=== PATIENT | female | born 1995 | race Caucasian/White ===

== ENCOUNTER 2017-03-06 23:23 | Emergency (ER) | payer OTHER ==
[~2017-03-06] VITALS: Ht 157.5 cm; Wt 90.7 kg
[~2017-03-06 23:23] MED LIST: METO10TA81 PO; NITR100C62 PO; PNV1TABL25 PO; PROAIR HFA8.5 GM INH; PROM25TA10 PO
[2017-03-06 23:35] VITALS: BP 119/71
[2017-03-07 00:27] LABS: BARBITURATES NEG (NEG); BENZODIAZEPINES NEG (NEG); CANNABINOIDS POS (NEG); COCAINE NEG (NEG); METHADONE NEG (NEG); OPIATES NEG (NEG); PHENCYCLIDINE NEG (NEG)
[2017-03-07 02:14] LABS: CALCIUM 8.6 mg/dL (8.5-10.1); CREATININE 0.8 mg/dL (0.6-1.0); GFR 91.4; POTASSIUM 3.4 mmol/L (3.5-5.1)
[2017-03-07 02:15] LABS: NEG OBC SER NEG; POS OBC SER POS
[2017-03-07 02:21] LABS: ALBUMIN 3.9 g/dL (3.4-5.0); ALBUMIN/GLOBULIN RATIO 1.2 (1.0-1.7); TOTAL BILIRUBIN 0.5 mg/dL (0.2-1.0); TOTAL PROTEIN 7.2 g/dL (6.4-8.2)
[2017-03-07 03:20] LABS: BASO % 0 % (0-3); EOS % 1 % (0-3); HEMATOCRIT 39.5 % (36.0-47.0); HEMOGLOBIN 13.4 g/dL (12.0-15.5); LYMPH # 4.4 x10^3/uL (1.0-4.8); LYMPH % 34 % (24-48); MEAN CORPUSCULAR HEMOGLOBIN 27 pg (25-35); MEAN CORPUSCULAR HGB CONC 34 g/dL (31-37); MEAN CORPUSCULAR VOLUME 81 fL (79-100); MONO % 8 % (0-9); NEUT % 57 % (31-73); PLATELET COUNT 399 x10^3/uL (140-400); RED CELL DISTRIBUTION WIDTH 14.1 % (11.5-14.5); WHITE BLOOD COUNT 12.8 x10^3/uL (4.0-11.0)
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
== END 2017-03-07 04:58 | disposition home or self-care (01) ==
LOC: ER 23:23
DX: S60.812A Abrasion of left wrist, initial encounter (principal); T45.0X2A Poisoning by antiallergic and antiemetic drugs, intentional self-harm, initial encounter; J45.909 Unspecified asthma, uncomplicated; F12.10 Cannabis abuse, uncomplicated; G47.00 Insomnia, unspecified; F32.9 Major depressive disorder, single episode, unspecified; F41.9 Anxiety disorder, unspecified; X78.8XXA Intentional self-harm by other sharp object, initial encounter; Y93.89 Activity, other specified; Y92.89 Other specified places as the place of occurrence of the external cause; Y99.8 Other external cause status
CPT/HCPCS: 36415; 80053; 80305; 80320; 80329; 81025; 84703; 85027; 99284; G0480; G0481; 99285-25

== ENCOUNTER 2019-03-05 07:56 | Emergency (ER) | payer SELFPAY ==
[~2019-03-05] VITALS: Ht 157.5 cm; Wt 95.3 kg
[~2019-03-05 07:56] MED LIST changes: +ALBU2.5V8 INH; -PROAIR HFA8.5 GM INH
[2019-03-05 08:47] VITALS: BP 141/97
--- NOTE | 2019-03-05 09:08 | PHYS DOC ---
Past Medical History Past Medical History: No Pertinent History Additional Past Medical Histor: insomnia Past Surgical History: No Surgical History Alcohol Use: Occasionally Drug Use: None Adult General Chief Complaint Chief Complaint: ANKLE PROBLEM HPI HPI Patient is a 23 year old female who presents with a throbbing 7 out of 10 intermittent right ankle pain that began last night after she jumped off a porch accidentally. Patient states the pain is worse on weight bearing. Denies anything specifically relieving the pain Review of Systems Review of Systems Constitutional: Denies fever or chills [] Musculoskeletal: Reports right ankle pain Integument: Denies rash or skin lesions [] Neurologic: Denies headache, focal weakness or sensory changes [] All other systems were reviewed and found to be within normal limits, except as documented in this note. Allergies Allergies Allergies Coded Allergies Type Severity Reaction Last Updated Verified No Known Drug Allergies 01/29/15 No Physical Exam Physical Exam Constitutional: Well developed, well nourished, no acute distress, non-toxic appearance. [] Skin: Warm, dry, no erythema, no rash. [] Back: No tenderness, no CVA tenderness. [] Extremities: Right ankle with no obvious deformity, moderate soft tissue swelling noted on the right lateral ankle. Tenderness on palpation of the right lateral ankle. Full range of motion to the right ankle and toes. +2 right pedal pulse. Cap refill less than 2 seconds the right toes. Sensation intact. Neurologic: Alert and oriented X 3, normal motor function, normal sensory function, no focal deficits noted. [] Psychologic: Affect normal, judgement normal, mood normal. [] Current Patient Data Vital Signs Vital Signs Date Time Temp Pulse Resp B/P (MAP) Pulse Ox O2 Delivery O2 Flow Rate FiO2 03/05/19 08:47 98.9 93 12 141/97 (112) 99 Room Air 98.9 EKG EKG [] Radiology/Procedures Radiology/Procedures []PROCEDURE: ANKLE RIGHT 3V ANKLE RIGHT 3V 03/05/2019 8:52 AM INDICATION: Twisted ankle COMPARISON: None available. TECHNIQUE: 3 views of the right ankle are provided. FINDINGS: There is no acute fracture or dislocation. Bone mineralization is within normal limits. Joint spaces are maintained. Lateral soft tissue swelling of the ankle. There is no soft tissue gas or osseous erosion. IMPRESSION: Significant lateral soft tissue ankle swelling without acute fracture or dislocation. Electronically signed by: Taniya Campo MD (03/05/2019 9:09 AM) [id number] DICTATED and SIGNED BY: TANIYA CAMPO MD DATE: 03/05/19908 Course & Med Decision Making Course & Med Decision Making Pertinent Labs and Imaging studies reviewed. (See chart for details) This is a 23-year-old female patient presented to the ED today with right ankle pain that began after she jumped off a porch yesterday. Right ankle x-rays interpreted by radiologist were noted for soft tissue swelling that does not acute findings. Antolin bandage and air cast applied to the right ankle. Ice elevation encouraged. Provided orthopedic doctor for follow-up. OTC pain relievers recommended this patient anti-inflammatories. Dragon Disclaimer Dragon Disclaimer This electronic medical record was generated, in whole or in part, using a voice recognition dictation system. Departure Departure Impression: Primary Impression: Right ankle sprain Additional Impression: Fall from height of less than 3 feet Disposition: 01 HOME, SELF-CARE Condition: STABLE Referrals: NO PCP (PCP) MONIQUE MARR II, MD follow up in one week Patient Instructions: Ankle Sprain, Acute, with Phase I Rehab[facility]Sports[facility] Additional Instructions: You were seen for right ankle sprain. Wear the Antolin bandage and air cast provided as tolerated. Try to ice and elevate the extremity. Take over the counter pain relievers as needed. Problem Qualifiers Primary Impression: Right ankle sprain Encounter type: initial encounter Involved ligament of ankle: unspecified ligament Qualified Codes: S93.401A - Sprain of unspecified ligament of right ankle, initial encounter JP [employer]CHER [employer] Mar 05, 2019 09:08
--- NOTE | 2019-03-05 09:12 | RAD ---
ANKLE RIGHT 3V 03/05/2019 8:52 AM INDICATION: Twisted ankle COMPARISON: None available. TECHNIQUE: 3 views of the right ankle are provided. FINDINGS: There is no acute fracture or dislocation. Bone mineralization is within normal limits. Joint spaces are maintained. Lateral soft tissue swelling of the ankle. There is no soft tissue gas or osseous erosion. IMPRESSION: Significant lateral soft tissue ankle swelling without acute fracture or dislocation. Electronically signed by: Jessica Campo MD (03/05/2019 9:09 AM) [id number]
== END 2019-03-05 10:44 | disposition home or self-care (01) ==
LOC: ER 07:56
DX: S93.491A Sprain of other ligament of right ankle, initial encounter (principal); W17.89XA Other fall from one level to another, initial encounter; Y93.39 Activity, other involving climbing, rappelling and jumping off; Y92.89 Other specified places as the place of occurrence of the external cause; Y99.8 Other external cause status
CPT/HCPCS: 29515; 73610; 99284

== ENCOUNTER 2019-08-11 22:57 | Emergency (ER) | payer MEDICAID ==
[~2019-08-11] VITALS: Ht 157.5 cm; Wt 99.8 kg
[2019-08-12] LABS: BASO # 0.1 x10^3/uL (0.0-0.2); BASO % 1 % (0-3); EOS # 0.1 x10^3/uL (0.0-0.7); EOS % 1 % (0-3); HEMATOCRIT 38.8 % (36.0-47.0); LYMPH # 2.1 x10^3/uL (1.0-4.8); LYMPH % 27 % (24-48); MEAN CORPUSCULAR HEMOGLOBIN 26 pg (25-35); MEAN CORPUSCULAR HGB CONC 34 g/dL (31-37); MEAN CORPUSCULAR VOLUME 78 fL (79-100); MONO # 0.7 x10^3/uL (0.0-1.1); MONO % 9 % (0-9); NEUT # 4.8 x10^3/uL (1.8-7.7); NEUT % 63 % (31-73); PLATELET COUNT 411 x10^3/uL (140-400); RED BLOOD COUNT 4.96 x10^6/uL (3.50-5.40); RED CELL DISTRIBUTION WIDTH 15.7 % (11.5-14.5); WHITE BLOOD COUNT 7.7 x10^3/uL (4.0-11.0)
[2019-08-12 00:03] LABS: BILIRUBIN,URINE NEGATIVE (NEG); CLARITY,URINE CLEAR; COLOR,URINE YELLOW; NITRITE,URINE NEGATIVE (NEG); PROTEIN,URINE NEGATIVE (NEG-TRACE); UROBILINOGEN,URINE 0.2 mg/dL (0.2 mg/dL)
--- NOTE | 2019-08-12 00:08 | PHYS DOC ---
Past Medical History Past Medical History: No Pertinent History Additional Past Medical Histor: insomnia Past Surgical History: No Surgical History Alcohol Use: Occasionally Drug Use: None Adult General Chief Complaint Chief Complaint: VAGINAL BLEEDING HPI HPI 24-year-old female presents to the emergency department with complaints of vaginal bleeding. Patient states last menstrual period June 03, 2019. She states she did have some early vaginal bleeding after diagnosis of she received ultrasound at [facility] however no evidence of intrauterine at that time. Patient presents today with abdominal cramping as well as vaginal bleeding. Patient denies any fever, nausea, vomiting, chest pain or shortness of breath Review of Systems Review of Systems Constitutional: Denies fever or chills [] Respiratory: Denies cough or shortness of breath [] Cardiovascular: No additional information not addressed in HPI [] GI: abdominal cramping, no nausea, vomiting, bloody stools or diarrhea [] : Denies dysuria or hematuria [] Musculoskeletal: Denies back pain or joint pain [] Neurologic: Denies headache, focal weakness or sensory changes [] All other systems were reviewed and found to be within normal limits, except as documented in this note. Allergies Allergies Allergies Coded Allergies Type Severity Reaction Last Updated Verified No Known Drug Allergies 01/29/15 No Physical Exam Physical Exam Constitutional: Well developed, well nourished, no acute distress, non-toxic appearance. [] HENT: Normocephalic, atraumatic, bilateral external ears normal, oropharynx moist, no oral exudates, nose normal. [] Eyes: PERRLA, EOMI, conjunctiva normal, no discharge. [] Cardiovascular:Heart rate regular rhythm, no murmur [] Lungs & Thorax: Bilateral breath sounds clear to auscultation [] Abdomen: Bowel sounds normal, soft, no tenderness, no masses, no pulsatile masses. [] Skin: Warm, dry, no erythema, no rash. [] Back: No tenderness, no CVA tenderness. [] Extremities: No tenderness, no edema. [] Neurologic: Alert and oriented X 3, no focal deficits noted. [] Psychologic: Affect normal, judgement normal, mood normal. [] Vaginal exam reveals evidence of no acute bleeding present, she does have some discharge present Current Patient Data Vital Signs Vital Signs Date Time Temp Pulse Resp B/P (MAP) Pulse Ox O2 Delivery O2 Flow Rate FiO2 08/11/19 23:30 98.0 86 18 142/86 (104) 99 Room Air 98.0 Lab Values Laboratory Tests Test 08/11/19 23:30 08/11/19 23:47 08/11/19 23:52 Urine Collection Type Unknown Urine Color Yellow Urine Clarity Clear Urine pH 5.0 Urine Specific Jewett 1.020 Urine Protein Negative mg/dL (NEG-TRACE) Urine Glucose (UA) Negative mg/dL (NEG) Urine Ketones (Stick) 40 mg/dL (NEG) Urine Blood Negative (NEG) Urine Nitrite Negative (NEG) Urine Bilirubin Negative (NEG) Urine Urobilinogen Dipstick 0.2 mg/dL (0.2 mg/dL) Urine Leukocyte Esterase Moderate (NEG) Urine RBC 1-2 /HPF (0-2) Urine WBC 11-20 /HPF (0-4) Urine Squamous Epithelial Cells Mod /LPF Urine Bacteria Few /HPF (0-FEW) Urine Mucus Marked /LPF White Blood Count 7.7 x10^3/uL (4.0-11.0) Red Blood Count 4.96 x10^6/uL (3.50-5.40) Hemoglobin 13.0 g/dL (12.0-15.5) Hematocrit 38.8 % (36.0-47.0) Mean Corpuscular Volume 78 fL (79-100) L Mean Corpuscular Hemoglobin 26 pg (25-35) Mean Corpuscular Hemoglobin Concent 34 g/dL (31-37) Red Cell Distribution Width 15.7 % (11.5-14.5) H Platelet Count 411 x10^3/uL (140-400) H Neutrophils (%) (Auto) 63 % (31-73) Lymphocytes (%) (Auto) 27 % (24-48) Monocytes (%) (Auto) 9 % (0-9) Eosinophils (%) (Auto) 1 % (0-3) Basophils (%) (Auto) 1 % (0-3) Neutrophils # (Auto) 4.8 x10^3/uL (1.8-7.7) Lymphocytes # (Auto) 2.1 x10^3/uL (1.0-4.8) Monocytes # (Auto) 0.7 x10^3/uL (0.0-1.1) Eosinophils # (Auto) 0.1 x10^3/uL (0.0-0.7) Basophils # (Auto) 0.1 x10^3/uL (0.0-0.2) Maternal Serum HCG Beta Subunit 81782 mIU/mL (0-5) H Sodium Level 137 mmol/L (136-145) Potassium Level 3.6 mmol/L (3.5-5.1) Chloride Level 103 mmol/L (98-107) Carbon Dioxide Level 24 mmol/L (21-32) Anion Gap 10 (6-14) Blood Urea Nitrogen 9 mg/dL (7-20) Creatinine 0.7 mg/dL (0.6-1.0) Estimated GFR (Cockcroft-Gault) 103.7 BUN/Creatinine Ratio 13 (6-20) Glucose Level 98 mg/dL (70-99) Calcium Level 8.9 mg/dL (8.5-10.1) Total Bilirubin 0.3 mg/dL (0.2-1.0) Aspartate Amino Transferase (AST) 13 U/L (15-37) L Alanine Aminotransferase (ALT) 17 U/L (14-59) Alkaline Phosphatase 65 U/L (46-116) Total Protein 7.7 g/dL (6.4-8.2) Albumin 3.7 g/dL (3.4-5.0) Albumin/Globulin Ratio 0.9 (1.0-1.7) L POC Urine HCG, Qualitative Hcg positive (Negative) Laboratory Tests 08/11/19 23:47 Laboratory Tests 08/11/19 23:47 Microbiology 08/12/19 Wet Prep - Final, Complete EKG EKG [] Radiology/Procedures Radiology/Procedures [facility] [address] [place], [place] [id number] IMAGING REPORT Signed PATIENT: MARTIN NEWMAN ACCOUNT: [id number] : 1995 LOCATION: ER AGE: 24 SEX: F EXAM STATUS: REG ER ORD. PHYSICIAN: MARYBETH PATTON MD REASON: vaginal bleeding in < 14weeks, unknown IUP PROCEDURE: OB TRANSVAG Examination: Obstetric ultrasound. Mr. HISTORY: History of vaginal bleeding COMPARISON: None available. FINDINGS: The uterus measures 8.8 x 5.9 x 4.5 cm. The right ovary measures 3.8 x 1.9 x 2.0 cm. The left ovary measures 3.1 x 1.9 x 1.5 cm. Corpus luteal cyst measuring 1.6 cm in the right ovary. Intrauterine gestational sac identified. heart rate 110 bpm. The crown-rump length measures 0.47 cm corresponding to 6 weeks and 1 day Gestational age of 6 weeks and 1 day with estimated date of delivery by ultrasound 04/05/2020. 3 cm heterogeneous echogenicity identified anterior inferior to gestational sac. Small amount of fluid identified in the cervix. Clinical age of 6 weeks and 1 day. Given LMP is 06/13/2019. IMPRESSION: 1. Single living intrauterine with heart rate of 110 bpm. 2. 3 cm heterogeneous echogenicity identified anterior and inferior to the gestational sac could be subchorionic bleed. Electronically signed by: Emre Garrett MD (08/12/2019 1:39 AM) [facility] DICTATED and SIGNED BY: EMRE GARRTET MD DATE: 08/12/19 0139 [] Course & Med Decision Making Course & Med Decision Making Pertinent Labs and Imaging studies reviewed. (See chart for details) []24-year-old female presents to the emergency department with complaints of vaginal bleeding. Patient states last menstrual period June 03, 2019. She states she did have some early vaginal bleeding after diagnosis of she received ultrasound at [facility] however no evidence of intrauterine at that time. Patient presents today with abdominal cramping as well as vaginal bleeding. Patient denies any fever, nausea, vomiting, chest pain or shortness of breath Labs reviewed Evidence of UTI, BV on exam Abx provided upon discharge for flagyl 500mg BID, Keflex 500mg BID x 3 days Discussed return precautions Dragon Disclaimer Dragon Disclaimer This electronic medical record was generated, in whole or in part, using a voice recognition dictation system. Departure Departure Impression: Primary Impression: Asymptomatic bacteriuria during in first trimester Additional Impressions: Vaginal bleeding in Bacterial vaginosis in Disposition: HOME, SELF-CARE Condition: STABLE Referrals: NO PCP (PCP) Patient Instructions: Bacterial Vaginosis, [id number], Urinary Tract Infection, Vaginal Bleeding During , First Trimester Additional Instructions: Recommend follow up with PCP 3 - 5 days Return to the ER with worsening symptoms, intractable pain, fever, altered mental status Tylenol/Motrin as needed for pain Take antibiotics as directed Scripts Cephalexin (KEFLEX) 500 Mg Capsule 2 CAP PO Q12HR for 3 Days, #12 CAP Prov: MARYBETH PATTON MD 08/12/19 Metronidazole (FLAGYL) 500 Mg Tablet 1 TAB PO BID, #14 TAB Prov: MARYBETH PATTON MD 08/12/19 Problem Qualifiers MARYBETH PATTON MD Aug 12, 2019 00:08
[2019-08-12 00:10] LABS: CALCIUM 8.9 mg/dL (8.5-10.1); CREATININE 0.7 mg/dL (0.6-1.0); GFR 103.7; POTASSIUM 3.6 mmol/L (3.5-5.1)
[2019-08-12 00:11] LABS: BACTERIA,URINE FEW /HPF (0-FEW); SQUAMOUS EPITHELIAL CELL,UR MOD /LPF
[2019-08-12 00:16] LABS: ALBUMIN 3.7 g/dL (3.4-5.0); ALBUMIN/GLOBULIN RATIO 0.9 (1.0-1.7); TOTAL BILIRUBIN 0.3 mg/dL (0.2-1.0); TOTAL PROTEIN 7.7 g/dL (6.4-8.2)
[2019-08-12 00:35] VITALS: BP 122/40
[2019-08-12] MEDS ORDERED: METR500T PO (01:09)
[2019-08-12] MEDS ORDERED: CEPH-264 PO (01:09)
--- NOTE | 2019-08-12 01:42 | RAD ---
Examination: Obstetric ultrasound. Mr. HISTORY: History of vaginal bleeding COMPARISON: None available. FINDINGS: The uterus measures 8.8 x 5.9 x 4.5 cm. The right ovary measures 3.8 x 1.9 x 2.0 cm. The left ovary measures 3.1 x 1.9 x 1.5 cm. Corpus luteal cyst measuring 1.6 cm in the right ovary. Intrauterine gestational sac identified. heart rate 110 bpm. The crown-rump length measures 0.47 cm corresponding to 6 weeks and 1 day Gestational age of 6 weeks and 1 day with estimated date of delivery by ultrasound 04/05/2020. 3 cm heterogeneous echogenicity identified anterior inferior to gestational sac. Small amount of fluid identified in the cervix. Clinical age of 6 weeks and 1 day. Given LMP is 06/13/2019. IMPRESSION: 1. Single living intrauterine with heart rate of 110 bpm. 2. 3 cm heterogeneous echogenicity identified anterior and inferior to the gestational sac could be subchorionic bleed. Electronically signed by: Emre Garrett MD (08/12/2019 1:39 AM) [facility]
[2019-08-13 20:08] LABS: GC PROBE Negative (Negative)
== END 2019-08-12 02:08 | disposition home or self-care (01) ==
LOC: ER 22:57
DX: O46.91 Antepartum hemorrhage, unspecified, first trimester (principal); O23.591 Infection of other part of genital tract in pregnancy, first trimester; B96.89 Other specified bacterial agents as the cause of diseases classified elsewhere; R82.71 Bacteriuria; Z3A.01 Less than 8 weeks gestation of pregnancy
CPT/HCPCS: 36415; 76817; 80053; 81001; 81025; 84702; 85025; 86850; 86900; 86901; 87086; 87491; 87591; 99285; Q0111

== ENCOUNTER 2019-08-17 18:47 | Emergency (ER) | payer MEDICAID ==
[~2019-08-17] VITALS: Ht 157.5 cm; Wt 99.8 kg
[~2019-08-17 18:47] MED LIST changes: +CEPH-264 PO; +METR500T PO
[2019-08-17 19:00] VITALS: BP 124/79
[2019-08-17] MEDS ORDERED: IV NORMAL SALINE 1000ML BAG 1,000 ML IV SCH (19:22)
--- NOTE | 2019-08-17 19:28 | PHYS DOC ---
Past Medical History Past Medical History: Anxiety, Depression Additional Past Medical Histor: insomnia Past Surgical History: Other Additional Past Surgical Histo: WISDOM TEETH Alcohol Use: Occasionally Drug Use: None Adult General Chief Complaint Chief Complaint: VOMITING IN HPI HPI Patient is a 24-year-old female at 7 weeks gestational age who presents wi th complaint of nausea with vomiting that started this morning about 11:00. Patient states that since that time she is not able to keep anything down. She denies any abdominal pain. She does indicate that she's been moving her bowels and states that is just an soft stool. She denies any fever. She also denies any chest pain or shortness of breath. Patient states that she has had no vaginal discharge or bleeding.[] Review of Systems Review of Systems Constitutional: Denies fever or chills [] Respiratory: Denies cough or shortness of breath [] Cardiovascular: No additional information not addressed in HPI [] GI: Denies abdominal pain. Complains of nausea and vomiting without diarrhea [] Integument: Denies rash or skin lesions [] Neurologic: Denies headache, focal weakness or sensory changes [] All other systems were reviewed and found to be within normal limits, except as documented in this note. Current Medications Current Medications Current Medications Medications (Trade) Dose Ordered Sig/Dewey Start Time Stop Time Status Last Admin Dose Admin Ondansetron HCl (Zofran) 4 mg 1X ONCE 08/17/19 19:30 08/17/19 19:31 DC 08/17/19 19:30 4 MG Sodium Chloride 1,000 ml @ 1,000 mls/hr Q1H 08/17/19 19:22 08/17/19 20:21 DC 08/17/19 19:22 1,000 MLS/HR Allergies Allergies Allergies Coded Allergies Type Severity Reaction Last Updated Verified No Known Drug Allergies 01/29/15 No Physical Exam Physical Exam Constitutional: Well developed, well nourished, no acute distress, non-toxic appearance. [] HENT: Normocephalic, atraumatic, bilateral external ears normal, oropharynx moist, no oral exudates, nose normal. [] Eyes: PERRLA, EOMI, conjunctiva normal, no discharge. [] Neck: Normal range of motion, no tenderness, supple. [] Cardiovascular: Regular rate and rhythm[] Lungs & Thorax: Bilateral breath sounds clear to auscultation [] Abdomen: Bowel sounds normal, soft, no tenderness. [] Skin: Warm, dry, no erythema, no rash. [] Extremities: No tenderness, no cyanosis, no clubbing, ROM intact, no edema. [] Neurologic: Alert and oriented X 3, no focal deficits noted. [] Current Patient Data Vital Signs Vital Signs Date Time Temp Pulse Resp B/P (MAP) Pulse Ox O2 Delivery O2 Flow Rate FiO2 08/17/19 19:00 97.3 80 18 124/79 (94) 100 Room Air 97.3 Lab Values Laboratory Tests Test 08/17/19 19:10 08/17/19 19:24 White Blood Count 8.8 x10^3/uL (4.0-11.0) Red Blood Count 5.15 x10^6/uL (3.50-5.40) Hemoglobin 13.6 g/dL (12.0-15.5) Hematocrit 41.1 % (36.0-47.0) Mean Corpuscular Volume 80 fL (79-100) Mean Corpuscular Hemoglobin 26 pg (25-35) Mean Corpuscular Hemoglobin Concent 33 g/dL (31-37) Red Cell Distribution Width 16.1 % (11.5-14.5) H Platelet Count 418 x10^3/uL (140-400) H Neutrophils (%) (Auto) 66 % (31-73) Lymphocytes (%) (Auto) 25 % (24-48) Monocytes (%) (Auto) 8 % (0-9) Eosinophils (%) (Auto) 1 % (0-3) Basophils (%) (Auto) 1 % (0-3) Neutrophils # (Auto) 5.7 x10^3/uL (1.8-7.7) Lymphocytes # (Auto) 2.2 x10^3/uL (1.0-4.8) Monocytes # (Auto) 0.7 x10^3/uL (0.0-1.1) Eosinophils # (Auto) 0.1 x10^3/uL (0.0-0.7) Basophils # (Auto) 0.1 x10^3/uL (0.0-0.2) Maternal Serum HCG Beta Subunit 33959 mIU/mL (0-5) H Sodium Level 137 mmol/L (136-145) Potassium Level 3.8 mmol/L (3.5-5.1) Chloride Level 104 mmol/L (98-107) Carbon Dioxide Level 21 mmol/L (21-32) Anion Gap 12 (6-14) Blood Urea Nitrogen 8 mg/dL (7-20) Creatinine 0.7 mg/dL (0.6-1.0) Estimated GFR (Cockcroft-Gault) 103.7 BUN/Creatinine Ratio 11 (6-20) Glucose Level 102 mg/dL (70-99) H Calcium Level 9.0 mg/dL (8.5-10.1) Total Bilirubin 0.3 mg/dL (0.2-1.0) Aspartate Amino Transferase (AST) 16 U/L (15-37) Alanine Aminotransferase (ALT) 12 U/L (14-59) L Alkaline Phosphatase 59 U/L (46-116) Total Protein 7.6 g/dL (6.4-8.2) Albumin 3.6 g/dL (3.4-5.0) Albumin/Globulin Ratio 0.9 (1.0-1.7) L Lipase 76 U/L (73-393) POC Urine HCG, Qualitative Hcg positive (Negative) Laboratory Tests 08/17/19 19:10 Laboratory Tests 08/17/19 19:10 EKG EKG [] Radiology/Procedures Radiology/Procedures [] Course & Med Decision Making Course & Med Decision Making Pertinent Labs and Imaging studies reviewed. (See chart for details) reevaluated at 8:20 PM and patient states that she is feeling much better at this time. 1 L of fluids has infused and patient has had 4 mg of Zofran via IV. Dragon Disclaimer Dragon Disclaimer This electronic medical record was generated, in whole or in part, using a voice recognition dictation system. Departure Departure Impression: Primary Impression: Nausea and vomiting during Disposition: 01 HOME, SELF-CARE Condition: STABLE Referrals: DAMI JEFFERY MD (PCP) Patient Instructions: ABCs of , Nausea and Vomiting, Scripts Ondansetron (ONDANSETRON ODT) 4 Mg Tab.rapdis 1 TAB PO PRN Q6-8HRS PRN for NAUSEA, #15 TAB Prov: NERI ARMSTRONG Jr. DO 08/17/19 NERI ARMSTRONG Jr. DO Aug 17, 2019 19:28
[2019-08-17] MEDS ORDERED: ONDANSETRON PF 4 MG/2 ML VIAL. IV ONE (19:30)
[2019-08-17 19:31] LABS: BASO # 0.1 x10^3/uL (0.0-0.2); BASO % 1 % (0-3); EOS # 0.1 x10^3/uL (0.0-0.7); EOS % 1 % (0-3); HEMATOCRIT 41.1 % (36.0-47.0); HEMOGLOBIN 13.6 g/dL (12.0-15.5); LYMPH # 2.2 x10^3/uL (1.0-4.8); LYMPH % 25 % (24-48); MEAN CORPUSCULAR HEMOGLOBIN 26 pg (25-35); MEAN CORPUSCULAR HGB CONC 33 g/dL (31-37); MEAN CORPUSCULAR VOLUME 80 fL (79-100); MONO # 0.7 x10^3/uL (0.0-1.1); MONO % 8 % (0-9); NEUT # 5.7 x10^3/uL (1.8-7.7); NEUT % 66 % (31-73); PLATELET COUNT 418 x10^3/uL (140-400); RED BLOOD COUNT 5.15 x10^6/uL (3.50-5.40); RED CELL DISTRIBUTION WIDTH 16.1 % (11.5-14.5); WHITE BLOOD COUNT 8.8 x10^3/uL (4.0-11.0)
[2019-08-17 19:40] LABS: CREATININE 0.7 mg/dL (0.6-1.0); GFR 103.7; POTASSIUM 3.8 mmol/L (3.5-5.1)
[2019-08-17 19:46] LABS: ALBUMIN 3.6 g/dL (3.4-5.0); ALBUMIN/GLOBULIN RATIO 0.9 (1.0-1.7); TOTAL BILIRUBIN 0.3 mg/dL (0.2-1.0); TOTAL PROTEIN 7.6 g/dL (6.4-8.2)
[2019-08-17] MEDS ORDERED: ONDA4TAB12 PO (20:25)
== END 2019-08-17 20:25 | disposition home or self-care (01) ==
LOC: ER 18:47
DX: O21.9 Vomiting of pregnancy, unspecified (principal); O99.341 Other mental disorders complicating pregnancy, first trimester; F41.9 Anxiety disorder, unspecified; F32.9 Major depressive disorder, single episode, unspecified; Z3A.01 Less than 8 weeks gestation of pregnancy
CPT/HCPCS: 36415; 80053; 81025; 83690; 84702; 85025; 96361; 96374; 99284; J2405; J7030

== ENCOUNTER 2019-08-19 23:49 | Emergency (ER) | payer MEDICAID ==
[~2019-08-19] VITALS: Ht 157.5 cm; Wt 101.2 kg
[~2019-08-19 23:49] MED LIST changes: +ONDA4TAB12 PO
[2019-08-20 00:05] VITALS: BP 149/85
[2019-08-20] MEDS ORDERED: ONDANSETRON ODT 4 MG TAB.RAPDIS. PO STA (00:09)
--- NOTE | 2019-08-20 00:13 | PHYS DOC ---
Past Medical History Past Medical History: Anxiety, Depression Additional Past Medical Histor: insomnia (REINALDO CHAO APRN) Past Surgical History: Other Additional Past Surgical Histo: WISDOM TEETH (REINALDO CHAO APRN) Alcohol Use: Occasionally Drug Use: None (REINALDO CHAO APRN) Adult General Chief Complaint Chief Complaint: VOMITING IN HPI HPI Patient is a 24 year old female who presents with nausea. The patient states she 7 weeks . Patient states she was at work and tried a half of a pizza and got nauseous. She states she was seen here recently prescribed nausea medicine but then she lost the prescription. She states her work told her she had a come to the ER. (REINALDO CHAO APRN) Review of Systems Review of Systems Constitutional: Denies fever or chills [] Eyes: Denies change in visual acuity, redness, or eye pain [] HENT: Denies nasal congestion or sore throat [] Respiratory: Denies cough or shortness of breath [] Cardiovascular: No additional information not addressed in HPI [] GI: Reports nausea, Denies abdominal pain, vomiting, bloody stools or diarrhea [] : Denies dysuria or hematuria [] Musculoskeletal: Denies back pain or joint pain [] Integument: Denies rash or skin lesions [] Neurologic: Denies headache, focal weakness or sensory changes [] Endocrine: Denies polyuria or polydipsia [] Complete systems were reviewed and found to be within normal limits, except as documented in this note. (REINALDO CHAO APRN) Current Medications Current Medications Current Medications Medications (Trade) Dose Ordered Sig/Dewey Start Time Stop Time Status Last Admin Dose Admin Ondansetron HCl (Zofran Odt) 4 mg 1X STAT 08/20/19 00:09 08/20/19 00:11 DC 08/20/19 00:42 4 MG (REINALDO BARAJAS DO) Allergies Allergies Allergies Coded Allergies Type Severity Reaction Last Updated Verified No Known Drug Allergies 01/29/15 No (REINALDO BARAJAS DO) Physical Exam Physical Exam Constitutional: Well developed, well nourished, no acute distress, non-toxic appearance. [] HENT: Normocephalic, atraumatic, bilateral external ears normal, oropharynx moist, no oral exudates, nose normal. [] Eyes: PERRLA, EOMI, conjunctiva normal, no discharge. [] Abdomen: Bowel sounds normal, soft, no tenderness, no masses, no pulsatile masses. [] Skin: Warm, dry, no erythema, no rash. [] Neurologic: Alert and oriented X 3, normal motor function, normal sensory function, no focal deficits noted. [] Psychologic: Affect normal, judgement normal, mood normal. [] (REINALDO CHAO APRN) Current Patient Data Vital Signs Vital Signs Date Time Temp Pulse Resp B/P (MAP) Pulse Ox O2 Delivery O2 Flow Rate FiO2 08/20/19 00:05 98.1 82 17 149/85 (106) 100 Room Air 98.1 (REINALDO BARAJAS DO) EKG EKG [] (REINALDO CHAO APRN) Radiology/Procedures Radiology/Procedures [] (REINALDO CHAO APRN) Course & Med Decision Making Course & Med Decision Making Pertinent Labs and Imaging studies reviewed. (See chart for details) Will give the patient a new script for nausea medication. Will give Zofran. Will also give an ODT Zofran in the ER. (REINALDO CHAO APRN) Dragon Disclaimer Dragon Disclaimer This electronic medical record was generated, in whole or in part, using a voice recognition dictation system. (REINALDO CHAO APRN) Departure Departure Impression: Primary Impression: Nausea and vomiting during Disposition: 01 HOME, SELF-CARE Condition: STABLE Referrals: JEOVANY MAX Jr, MD (PCP) Patient Instructions: Diet - Hyperemesis Gravidarum, Hyperemesis Gravidarum Additional Instructions: Thank you for visiting [facility]. We appreciate you trusting us with your care. If any additional problems come up don't hesitate to return to visit us. Please follow up with your primary care provider so they can plan jeannette tional care if needed and know about the problem that you had. If symptoms worsen come back to the Emergency Department. Any concerning symptoms that start such as chest pain, shortness of air, weakness or numbness on one side of the body, running high fevers or any other concerning symptoms return to the ER. Please fill your medications at any pharmacy and follow the prescription instructions. Please follow up with her RN UROLOGY. Please return for unable to keep fluids down at home. Scripts Ondansetron (ONDANSETRON ODT) 4 Mg Tab.rapdis 1 TAB PO PRN Q6-8HRS PRN for NAUSEA, #16 TAB Prov: REINALDO BARAJAS DO 08/20/19 Attending Signature Attending Signature I have reviewed the PA/TITLE SPECIALIST's note and plan of care. I was available for consultation as needed during the patient's visit in the emergency department. I agree with the clinical impression, plan, and disposition. (REINALDO BARAJAS DO) REINALDO CHAO APRN Aug 20, 2019 00:13 REINALDO BARAJAS DO Aug 20, 2019 01:18
[2019-08-20] MEDS ORDERED: ONDA4TAB12 PO (00:44)
== END 2019-08-20 00:51 | disposition home or self-care (01) ==
LOC: ER 23:49
DX: O21.9 Vomiting of pregnancy, unspecified (principal); O99.341 Other mental disorders complicating pregnancy, first trimester; F32.9 Major depressive disorder, single episode, unspecified; F41.9 Anxiety disorder, unspecified; Z3A.01 Less than 8 weeks gestation of pregnancy
CPT/HCPCS: 99283; Q0162

== ENCOUNTER 2019-09-03 20:04 | Emergency (ER) | payer MEDICAID ==
[~2019-09-03] VITALS: Ht 167.6 cm; Wt 101.2 kg
[2019-09-03 20:29] VITALS: BP 131/74
[2019-09-03 21:41] LABS: BILIRUBIN,URINE NEGATIVE (NEG); CLARITY,URINE CLEAR; COLOR,URINE YELLOW; NITRITE,URINE NEGATIVE (NEG); PH,URINE 7.5; PROTEIN,URINE NEGATIVE (NEG-TRACE); UROBILINOGEN,URINE 0.2 mg/dL (0.2 mg/dL)
[2019-09-03 21:52] LABS: SQUAMOUS EPITHELIAL CELL,UR MOD /LPF
[2019-09-03 21:53] LABS: BACTERIA,URINE 0 /HPF (0-FEW); RBC,URINE OCC /HPF (0-2); WBC,URINE OCC /HPF (0-4)
--- NOTE | 2019-09-03 22:18 | PHYS DOC ---
Past Medical History Past Medical History: Anxiety, Depression Additional Past Medical Histor: insomnia Past Surgical History: Other Additional Past Surgical Histo: WISDOM TEETH Alcohol Use: None Drug Use: None Adult General Chief Complaint Chief Complaint: CONSTIPATION HPI HPI Patient is a 24 year old Female who presents with states she has not had a bowel movement since Friday. She states that she can actually feel the heart stool in her rectum is very uncomfortable but she cannot get it out. States that she went and saw her OB doctor, Dr Styles and they gave her a Fleet enema but she still cannot stool out. She denies vomiting any more than usual due to her p regnancy. She is drinking plenty of fluids and keeping them down. Review of Systems Review of Systems GI: constipation. Denies abdominal pain, nausea, vomiting, bloody stools or diarrhea [] All other systems were reviewed and found to be within normal limits, except as documented in this note. Allergies Allergies Allergies Coded Allergies Type Severity Reaction Last Updated Verified No Known Drug Allergies 01/29/15 No Physical Exam Physical Exam Constitutional: Well developed, well nourished, no acute distress, non-toxic appearance. [] HENT: Normocephalic, atraumatic, bilateral external ears normal, oropharynx moist, no oral exudates, nose normal. [] Eyes: PERRLA, EOMI, conjunctiva normal, no discharge. [] Neck: Normal range of motion, no tenderness, supple, no stridor. [] Cardiovascular:Heart rate regular rhythm, no murmur [] Lungs & Thorax: Bilateral breath sounds clear to auscultation [] Abdomen: Bowel sounds normal, soft, no tenderness, no masses, no pulsatile masses. [] Skin: Warm, dry, no erythema, no rash. [] Back: No tenderness, no CVA tenderness. [] Extremities: No tenderness, no cyanosis, no clubbing, ROM intact, no edema. [] Neurologic: Alert and oriented X 3, normal motor function, normal sensory function, no focal deficits noted. [] Psychologic: Affect normal, judgement normal, mood normal. Normal Physical Exam [] Current Patient Data Vital Signs Vital Signs Date Time Temp Pulse Resp B/P (MAP) Pulse Ox O2 Delivery O2 Flow Rate FiO2 09/03/19 20:29 97.6 83 18 131/74 (93) 99 Room Air 97.6 Lab Values Laboratory Tests Test 09/03/19 20:15 09/03/19 20:22 Urine Collection Type Unknown Urine Color Yellow Urine Clarity Clear Urine pH 7.5 Urine Specific [place] 1.020 Urine Protein Negative mg/dL (NEG-TRACE) Urine Glucose (UA) Negative mg/dL (NEG) Urine Ketones (Stick) Negative mg/dL (NEG) Urine Blood Negative (NEG) Urine Nitrite Negative (NEG) Urine Bilirubin Negative (NEG) Urine Urobilinogen Dipstick 0.2 mg/dL (0.2 mg/dL) Urine Leukocyte Esterase Negative (NEG) Urine RBC Occ /HPF (0-2) Urine WBC Occ /HPF (0-4) Urine Squamous Epithelial Cells Mod /LPF Urine Bacteria 0 /HPF (0-FEW) Urine Mucus Mod /LPF POC Urine HCG, Qualitative Hcg positive (Negative) EKG EKG [] Radiology/Procedures Radiology/Procedures [] Course & Med Decision Making Course & Med Decision Making Alert and oriented. Abdomen is soft and nontender. She denies any abdominal pain or vaginal bleeding. Denies any vaginal discharge. Positive . Urinalysis negative for infection. Vital signs within normal limits. Denies any dysuria symptoms. Patient states her doctor told her to take MiraLAX. She states she took 1 dose of MiraLAX and did not help. Patient is educated that she must drink plenty of fluids when she takes MiraLAX and she can take MiraLAX every day until she has a bowel movement or begins having diarrhea. I have ordered a soapsuds enema. After soap suds enema patient states she had diarrhea but feel like theres more that needs to come out. Patient is told to continue to taking the Miralax and Drink Plenty of water. Dragon Disclaimer Dragon Disclaimer This electronic medical record was generated, in whole or in part, using a voice recognition dictation system. Departure Departure Impression: Primary Impression: Constipation Disposition: 01 HOME, SELF-CARE Condition: STABLE Referrals: NO PCP (PCP) Patient Instructions: Constipation, Adult Additional Instructions: Continue taking miralax. Drink plenty of fluids. You can try another fleets enema tomorrow. Follow up with your physician. Problem Qualifiers Primary Impression: Constipation Constipation type: unspecified constipation type Qualified Codes: K59.00 - Constipation, unspecified KAMERON NOGUEIRA APRN Sep 03, 2019 22:18
== END 2019-09-03 22:51 | disposition home or self-care (01) ==
LOC: ER 20:04
DX: O99.611 Diseases of the digestive system complicating pregnancy, first trimester (principal); K59.00 Constipation, unspecified; Z3A.09 9 weeks gestation of pregnancy
CPT/HCPCS: 81001; 81025; 99284